=== PATIENT | male | born 1985 | race Asian ===

== ENCOUNTER 2024-02-26 19:14 | Emergency (ER) | payer OTHER ==
[~2024-02-26] VITALS: Ht 170.2 cm; Wt 87.0 kg
[2024-02-26 19:43] VITALS: O2SAT 96
[2024-02-26] MEDS: IBUPROFEN 400MG TABLET PO ONE (21:30)
[2024-02-26 21:40] VITALS: BP 127/86; PULSE 71; RESP 16; TEMP 36.66960; O2SAT 100
== END 2024-02-26 21:40 | disposition home or self-care (01) ==
LOC: ER 19:14
DX: M25.562 Pain in left knee (principal); E78.00 Pure hypercholesterolemia, unspecified; Z88.0 Allergy status to penicillin
CPT/HCPCS: 73560; 99283